=== PATIENT | male | born 1960 | race Caucasian/White ===

== ENCOUNTER → 2021-02-17 | Day surgery (SDC) | payer OTHER ==
[~2021-02-17] VITALS: Ht 175.3 cm; Wt 102.5 kg
[~2021-02-17] MED LIST: AVAPRO300 MG PO; BYDUREON BCISE 2 MG SQ; CITALOPRAM HBR20 MG PO; GABAPENTIN600 MG PO; HYDROCODON-ACE1 EAC2 PO; HYDROXYZINE HCL10 MG PO; IRBESARTAN-HCT1 EAC1 PO; KLONOPIN TAB 00.5 MG PO; METOPROLOL SUC100 MG PO; TEGRETOL XR200 MG PO; ZYRTEC10 MG PO
[2021-02-17 06:50] LABS: HEMOGLOBIN 14.5 gm/dl (14.0-17.5); RED BLOOD COUNT 4.85 M/UL (4.20-5.50); WHITE BLOOD COUNT 6.9 K/UL (4.5-11.0)
[2021-02-17 07:03] LABS: BUN/CREATININE RATIO 30 (0-10)
== END | disposition home or self-care (01) ==
LOC: OR 02-16 06:13
PROVIDERS: Orthopaedic Surgery
DX: S62.317A Displaced fracture of base of fifth metacarpal bone, left hand, initial encounter for closed fracture (principal); I10 Essential (primary) hypertension; E78.5 Hyperlipidemia, unspecified; K21.9 Gastro-esophageal reflux disease without esophagitis; E03.9 Hypothyroidism, unspecified; W19.XXXA Unspecified fall, initial encounter
CPT/HCPCS: 36415; 73130; 76000; 80048; 82962; 85027; C1713; J0690; J1100; J2001; J2250; J2370; J2405; J2704; J3010; J7030; J7120

== ENCOUNTER → 2021-12-02 | Outpatient (CLI) | payer MEDICARE | LOC: KOH-I 09:30 | DX: S76.101A Unspecified injury of right quadriceps muscle, fascia and tendon, initial encounter (principal); M25.562 Pain in left knee; M25.462 Effusion, left knee; Z96.652 Presence of left artificial knee joint | CPT/HCPCS: 73700 ==